=== PATIENT | female | born 1965 | race Two or more races ===

== ENCOUNTER 2024-12-10 10:37 | Inpatient (IN) | payer MEDICAID ==
[~2024-12-10] VITALS: Ht 165.1 cm; Wt 97.3 kg
[2024-12-10 11:15] LABS: PLATELET COUNT (AUTO) 310 K/uL (150-450); RED BLOOD CELL COUNT(AUTO) 4.50 MIL/uL (4.0-5.2); RED CELL DISTRIBUTION WIDTH 12.9 % (11.5-15.0); WHITE BLOOD COUNT (AUTO) 6.5 K/uL (4.3-11.0)
[2024-12-10 11:25] LABS: CALCIUM, SERUM 9.2 mg/dL (8.5-10.1); CREATININE 0.7 mg/dL (0.6-1.3); SODIUM SERUM 139 mmol/L (136-145); UREA NITROGEN, BLOOD 13 mg/dL (7-18)
[2024-12-10 11:29] LABS: ASPARTATE AMINOTRANSFERASE 11 U/L (15-37); TOTAL PROTEIN, SERUM 7.1 g/dL (6.4-8.2)
[2024-12-10] MEDS ORDERED: MORPHINE SULFATE INJ 4 MG/ML DISP.SYRIN ONE (12:29)
[2024-12-10] MEDS ORDERED: ONDANSETRON HCL/PF 4 MG/2 ML VIAL ONE (12:29)
[2024-12-10] MEDS: MORPHINE SULFATE INJ 2 MG/ML DISP.SYRIN IV ONE (12:34)
[2024-12-10] MEDS: ONDANSETRON HCL/PF - ER 4 MG/2 ML VIAL IV ONE (12:34)
[2024-12-10 14:10] VITALS: O2SAT 98
[2024-12-10] MEDS ORDERED: CETI10TA14 PO (14:45)
[2024-12-10] MEDS ORDERED: INSU100I34 SQ (14:45)
[2024-12-10] MEDS ORDERED: ERYT3.5O9 EACHEYE (14:45)
[2024-12-10] MEDS ORDERED: INSU100I26 SQ (14:45)
[2024-12-10] MEDS ORDERED: HYDR-3980 MT (14:45)
[2024-12-10] MEDS ORDERED: BUPR-54 PO (14:45)
[2024-12-10] MEDS ORDERED: OMEP40CA21 PO (14:45)
[2024-12-10] MEDS ORDERED: MAGN400T30 PO (14:45)
[2024-12-10] MEDS ORDERED: SEMA0.25 SQ (14:45)
[2024-12-10] MEDS ORDERED: DULO60CA64 PO (14:45)
[2024-12-10] MEDS ORDERED: CYCL10TA9 PO (14:45)
[2024-12-10] MEDS ORDERED: GABA800T11 PO (14:45)
[2024-12-10] MEDS ORDERED: METF-440 PO (14:45)
[2024-12-10] MEDS ORDERED: CALC-1026 PO (14:45)
[2024-12-10] MEDS ORDERED: NALO25TA PO (14:45)
[2024-12-10] MEDS ORDERED: BACL10TA PO (14:45)
[2024-12-10] MEDS ORDERED: DOXY-326 PO (14:45)
[2024-12-10] MEDS ORDERED: HYDROMORPHONE 1 MG/1 ML DISP.SYRIN ONE (14:57)
[2024-12-10] MEDS: HYDROMORPHONE 1 MG/1 ML DISP.SYRIN IV ONE (15:02)
[2024-12-10] MEDS ORDERED: Z GUARD REMEDY 4 OZ OINT TP PRN (15:30)
[2024-12-10] MEDS ORDERED: ENOXAPARIN SODIUM 40 MG/0.4 ML DISP.SYRIN SQ ONE (15:51)
[2024-12-10] MEDS: ENOXAPARIN SODIUM 40 MG/0.4 ML DISP.SYRIN SQ SCH (15:55)
[2024-12-10] MEDS: LIDOCAINE 5% (PATCH) 1 EA PATCH TP SCH (15:57)
[2024-12-10] MEDS: ACETAMINOPHEN 325 MG TABLET PO PRN (17:53)
[2024-12-10 18:00] VITALS: BP 113/67; TEMP 97.7; O2SAT 95
[2024-12-10] MEDS: IV LR 1000 ML 1,000 ML IV ONE (19:50)
[2024-12-10 20:00] VITALS: BP 115/58; TEMP 97.9; O2SAT 96
[2024-12-10] MEDS: HYDROMORPHONE 1 MG/1 ML DISP.SYRIN IV PRN (20:41)
[2024-12-11] MEDS: HYDROCODONE/APAP 10/325MG TABLET PO PRN (00:45)
[2024-12-11] MEDS: ONDANSETRON HCL/PF 4 MG/2 ML VIAL IVP PRN (07:51)
[2024-12-11] MEDS: PANTOPRAZOLE 40 MG TABLET.DR PO SCH (07:51)
[2024-12-11 08:00] VITALS: BP 123/69; TEMP 97.9; O2SAT 99
[2024-12-11 08:31] LABS: PLATELET COUNT (AUTO) 286 K/uL (150-450); RED BLOOD CELL COUNT(AUTO) 4.39 MIL/uL (4.0-5.2); RED CELL DISTRIBUTION WIDTH 13.1 % (11.5-15.0); WHITE BLOOD COUNT (AUTO) 7.0 K/uL (4.3-11.0)
[2024-12-11 08:48] LABS: CALCIUM, SERUM 8.8 mg/dL (8.5-10.1); CREATININE 0.5 mg/dL (0.6-1.3); PHOSPHORUS 4.0 mg/dL (2.5-4.9); SODIUM SERUM 138.0 mmol/L (136-145); UREA NITROGEN, BLOOD 14.0 mg/dL (7-18)
[2024-12-11 10:18] LABS: LDL 115 mg/dL (0-99)
== END 2024-12-11 13:35 | disposition home or self-care (01) | DRG 48 ==
LOC: ER 10:41 → MED 16:14
PROVIDERS: ADMIT Nurse Practitioner Acute Care; ATTEND Nurse Practitioner Acute Care
DX: G90.89 Other disorders of autonomic nervous system (principal); E11.9 Type 2 diabetes mellitus without complications; S33.2XXA Dislocation of sacroiliac and sacrococcygeal joint, initial encounter; G89.4 Chronic pain syndrome; I10 Essential (primary) hypertension; Z88.0 Allergy status to penicillin; Z98.1 Arthrodesis status; E66.9 Obesity, unspecified; G47.33 Obstructive sleep apnea (adult) (pediatric); Z68.35 Body mass index [BMI] 35.0-35.9, adult; T63.441A Toxic effect of venom of bees, accidental (unintentional), initial encounter; Y92.89 Other specified places as the place of occurrence of the external cause
CPT/HCPCS: 36415; 70450-TC; 71045-TC; 72125-TC; 80048-TC; 80061-TC; 80076-TC; 82962-TC; 83735-TC; 84100-TC; 84484-TC; 85025-TC; 87081-TC; 93970-TC; 97110-TC; 97116-TC; 97530-TC; A4223; G0378; J1171; J1650; J2270; J2405; J7120